=== PATIENT | female | born 1985 | race African-American/Black ===

== ENCOUNTER 2023-12-13 10:17 | Emergency (ER) | payer OTHER, MEDICAID ==
[~2023-12-13] VITALS: Ht 170.2 cm; Wt 99.8 kg
[2023-12-13 10:27] VITALS: BP 150/97; TEMP 98.3
[2023-12-13] MEDS ORDERED: IBUP-1957 PO ×2 (10:36→18:42)
[2023-12-13] MEDS ORDERED: OXYC-128 PO ×2 (10:36→18:42)
[2023-12-13] MEDS ORDERED: ACETAMINOPHEN ES 500 MG TABLET ONE (10:50)
[2023-12-13] MEDS: ACETAMINOPHEN ES 500 MG TABLET PO ONE (10:56)
[2023-12-13 10:57] VITALS: O2SAT 96
== END 2023-12-13 10:58 | disposition home or self-care (01) ==
LOC: ER 10:30
DX: S13.4XXA Sprain of ligaments of cervical spine, initial encounter (principal); J45.909 Unspecified asthma, uncomplicated; Z79.1 Long term (current) use of non-steroidal anti-inflammatories (NSAID); Z88.0 Allergy status to penicillin; Z88.1 Allergy status to other antibiotic agents; Y93.89 Activity, other specified; V43.52XA Car driver injured in collision with other type car in traffic accident, initial encounter; Y92.488 Other paved roadways as the place of occurrence of the external cause; Y99.8 Other external cause status